=== PATIENT | female | born 1995 | race African-American/Black ===

== ENCOUNTER 2016-07-28 10:08 | Emergency (ER) | payer OTHER ==
[~2016-07-28] VITALS: Ht 162.6 cm; Wt 136.1 kg
[~2016-07-28 10:08] MED LIST: ALBU2.5V5 IH; CETI10CA PO; MOME220A5 IH; PRED50TA PO; albuterol; asmanex; metformin; other
[2016-07-28 10:49] VITALS: BP 166/77
[2016-07-28] MEDS ORDERED: OXYC-323 PO (11:28)
--- NOTE | 2016-07-28 11:29 | PHYS DOC ---
Past Medical History Past Medical History: Anemia, Asthma, Bronchitis, Sickle Cell Disease, Other Additional Past Medical Histor: Obesity Past Surgical History: Tonsillectomy Additional Past Surgical Histo: Adnoids. Alcohol Use: Occasionally Drug Use: None Adult General Chief Complaint Chief Complaint: MEDICATION REFI[facility] HPI 21-year-old female who is on very high doses of opioid medication for chronic pain issues presents stating she is out of her pain medication and asks if we can refill 60 mg of morphine and 30 mg of OxyContin. She states she is scheduled to see her pain clinic this week. She states she was recently discharged from a previous pain clinic secondary to insurance issues.] Review of Systems Review of Systems Constitutional: Denies fever or chills [] Eyes: Denies change in visual acuity, redness, or eye pain [] HENT: Denies nasal congestion or sore throat [] Respiratory: Denies cough or shortness of breath [] Cardiovascular: No additional information not addressed in HPI [] GI: Denies abdominal pain, nausea, vomiting, bloody stools or diarrhea [] : Denies dysuria or hematuria [] Musculoskeletal: Generalized pain [] Integument: Denies rash or skin lesions [] Neurologic: Denies headache, focal weakness or sensory changes [] Endocrine: Denies polyuria or polydipsia [] Allergies Allergies Allergies Coded Allergies Type Severity Reaction Last Updated Verified diphenhydramine HCl Allergy Intermediate Hives 01/24/14 Yes Physical Exam Physical Exam Constitutional: Well developed, well nourished, no acute distress, non-toxic appearance. [] HENT: Normocephalic, atraumatic, bilateral external ears normal, oropharynx moist, no oral exudates, nose normal. [] Eyes: PERRLA, EOMI, conjunctiva normal, no discharge. [] Neck: Normal range of motion, no tenderness, supple, no stridor. [] Cardiovascular:Heart rate regular rhythm, no murmur [] Lungs & Thorax: Bilateral breath sounds clear to auscultation [] Abdomen: Bowel sounds normal, soft, no tenderness, no masses, no pulsatile masses. [] Skin: Warm, dry, no erythema, no rash. [] Back: No tenderness, no CVA tenderness. [] Extremities: No tenderness, no cyanosis, no clubbing, ROM intact, no edema. [] Neurologic: Alert and oriented X 3, normal motor function, normal sensory function, no focal deficits noted. [] Psychologic: Affect normal, judgement normal, mood normal. [] Current Patient Data Vital Signs Vital Signs Date Time Temp Pulse Resp B/P Pulse Ox O2 Delivery O2 Flow Rate FiO2 07/28/16 10:49 98.4 105 15 100 Room Air 98.4 EKG EKG [] Radiology/Procedures Radiology/Procedures [] Course & Med Decision Making Course & Med Decision Making Pertinent Labs and Imaging studies reviewed. (See chart for details) [ED course: Evaluation reveals a 21-year-old female who requires high-dose opioids to manage her chronic daily pain. I had a long conversation with the patient that we could not and would not refill those kinds of medications. I let her know that she would need to follow with her pain management physician to assess her need for such high doses of medication.] Dragon Disclaimer Dragon Disclaimer This electronic medical record was generated, in whole or in part, using a voice recognition dictation system. Departure Departure Impression: Primary Impression: Chronic pain Additional Impression: Opioid dependence Disposition: 01 HOME, SELF-CARE Condition: STABLE Referrals: NO PCP (PCP) Patient Instructions: Chronic Pain, Chronic Pain Management, Opiate Dependence Additional Instructions: Thank you for allowing us to participate in your care today. Followup with your primary care physician in 3 days if your symptoms do not improve. Return to the emergency department you have any new or concerning findings. This should be evaluated by the primary care physician and any necessary consulting services for continued management within a few days after discharge. Return to emergency room if you have any new or concerning symptoms including but not limited to fever, chills, nausea, vomiting, intractable pain, any new rashes, chest pain, shortness of air, uncontrolled bleeding, difficulty breathing, and/or vision loss. You may have been prescribed medication that can change in your level of thinking and ability to operate machinery. These medications include hydrocodone and Ativan. Also, Benadryl has been known to do this as well. Be sure to check with your pharmacist and ask if the medications you've prescribed can affect your level of consciousness. I recommend not operating heavy machinery or driving while on medication such as these. Scripts Oxycodone/Apap 5-325 (Percocet 5-325 Mg Tablet)1 Each Tablet1 Tab PO PRN Q6HRS PRN PAIN #14 TAB Prov:TEODORA SOTO DO 07/28/16 Problem Qualifiers Primary Impression: Chronic pain Chronic pain type: chronic pain syndrome Qualified Code: G89.4 - Chronic pain syndrome Additional Impression: Opioid dependence Substance use status: uncomplicated Qualified Code: F11.20 - Opioid dependence, uncomplicated TEODORA SOTO DO Jul 28, 2016 11:29
[2016-07-28] MEDS ORDERED: OXYCODONE/APAP 5/325 TABLET. PO ONE (11:45)
== END 2016-07-28 11:39 | disposition home or self-care (01) ==
LOC: ER 10:08 → EDBD 10:08 → ER 11:39
DX: G89.29 Other chronic pain (principal); F11.20 Opioid dependence, uncomplicated; J45.909 Unspecified asthma, uncomplicated; E66.9 Obesity, unspecified; Z90.89 Acquired absence of other organs; Z88.8 Allergy status to other drugs, medicaments and biological substances
CPT/HCPCS: 99283

== ENCOUNTER 2016-08-17 19:37 | Emergency (ER) | payer OTHER ==
[~2016-08-17] VITALS: Ht 160 cm; Wt 158.8 kg
[~2016-08-17 19:37] MED LIST changes: +OXYC-323 PO
[2016-08-17 19:50] VITALS: BP 147/63
[2016-08-17 20:23] LABS: BILIRUBIN,URINE NEGATIVE (NEG); GLUCOSE,URINE NEGATIVE (NEG); NITRITE,URINE NEGATIVE (NEG); PH,URINE 5.5; PROTEIN,URINE NEGATIVE (NEG-TRACE); UROBILINOGEN,URINE 0.2 mg/dL (0.2 mg/dL)
[2016-08-17 20:38] LABS: OBC FLU VALID
[2016-08-17 20:40] LABS: BACTERIA,URINE MOD /HPF (0-FEW); RBC,URINE 0 /HPF (0-2); SQUAMOUS EPITHELIAL CELL,UR MANY /LPF; YEAST,URINE PRESENT /HPF
--- NOTE | 2016-08-17 20:48 | PHYS DOC ---
Past Medical History Past Medical History: Anemia, Asthma, Bronchitis, Sickle Cell Disease, Other Additional Past Medical Histor: Obesity Past Surgical History: Tonsillectomy Additional Past Surgical Histo: Adenoids Alcohol Use: Occasionally Drug Use: None Adult General Chief Complaint Chief Complaint: COUGH HPI HPI Patient is a 21 year old female with history of anemia, sickle cell anemia, asthma, who presents today with a sore throat coughing and nasal congestion for 3 days. Patient denies any fever. She is also complaining of body aches. Review of Systems Review of Systems Constitutional: Body aches Eyes: Denies change in visual acuity, redness, or eye pain [] HENT nasal congestion and sore throat [] Respiratory: Cough Cardiovascular: No additional information not addressed in HPI [] GI: Denies abdominal pain, nausea, vomiting, bloody stools or diarrhea [] : Denies dysuria or hematuria [] Musculoskeletal: Denies back pain or joint pain [] Integument: Denies rash or skin lesions [] Neurologic: Denies headache, focal weakness or sensory changes [] Endocrine: Denies polyuria or polydipsia [] Current Medications Current Medications Current Medications Medications (Trade) Dose Ordered Sig/Thierry Start Time Stop Time Status Last Admin Dose Admin Ibuprofen (Motrin) 800 mg 1X ONCE 08/17/16 21:30 08/17/16 21:31 08/17/16 21:21 800 MG Allergies Allergies Allergies Coded Allergies Type Severity Reaction Last Updated Verified diphenhydramine HCl Allergy Intermediate Hives 01/24/14 Yes Physical Exam Physical Exam Constitutional: Well developed, well nourished, no acute distress, non-toxic appearance. [] HENT: Normocephalic, atraumatic, bilateral external ears normal, oropharynx moist, no oral exudates, nose normal. [] Eyes: PERRLA, EOMI, conjunctiva normal, no discharge. [] Neck: Normal range of motion, no tenderness, supple, no stridor. [] Cardiovascular:Heart rate regular rhythm, no murmur [] Lungs & Thorax: Bilateral breath sounds clear to auscultation [] Abdomen: Bowel sounds normal, soft, no tenderness, no masses, no pulsatile masses. [] Skin: Warm, dry, no erythema, no rash. [] Back: No tenderness, no CVA tenderness. [] Extremities: No tenderness, no cyanosis, no clubbing, ROM intact, no edema. [] Neurologic: Alert and oriented X 3, normal motor function, normal sensory function, no focal deficits noted. [] Psychologic: Affect normal, judgement normal, mood normal. [] Current Patient Data Vital Signs Vital Signs Date Time Temp Pulse Resp B/P Pulse Ox O2 Delivery O2 Flow Rate FiO2 08/17/16 19:50 98.9 99 16 100 Room Air 98.9 Lab Values Laboratory Tests Test 08/17/16 20:00 08/17/16 20:10 08/17/16 20:11 Urine Collection Type Unknown Urine Color Yellow Urine Clarity Clear Urine pH 5.5 Urine Specific [place] 1.025 Urine Protein Negativemg/dL (NEG-TRACE) Urine Glucose (UA) Negativemg/dL (NEG) Urine Ketones (Stick) Negativemg/dL (NEG) Urine Blood Negative (NEG) Urine Nitrite Negative (NEG) Urine Bilirubin Negative (NEG) Urine Urobilinogen Dipstick 0.2mg/dL (0.2 mg/dL) Urine Leukocyte Esterase Negative (NEG) Urine RBC 0/HPF (0-2) Urine WBC 1-4/HPF (0-4) Urine Squamous Epithelial Cells Many/LPF Urine Bacteria Mod/HPF (0-FEW) Urine Mucus Marked/LPF Urine Yeast Present/HPF Influenza Type A Antigen Negative (NEGATIVE) Influenza Type B Antigen Negative (NEGATIVE) POC Urine HCG, Qualitative Hcg negative (Negative) EKG EKG [] Radiology/Procedures Radiology/Procedures [] Course & Med Decision Making Course & Med Decision Making Pertinent Labs and Imaging studies reviewed. (See chart for details) Patient is in the ED with symptoms consistent with an upper RESPIRATORY infection including fever cough and body aches. Chest x-ray interpreted by Dr. Bryant is negative for any acute findings. Negative rapid strep, negative influenza A or B. Symptoms are viral. Discharged with instructions to take over- the-counter medications. Patient states she has already been seen at [facility] 5 days ago and was given antibiotics which she has finished. She states she was also given Robitussin. Informed patient she can continue taking any tuke-ikt-ftmbpei cold medicines. Instructed her to take pcln-[id number]-[id number] pain relievers as well. Discharged in stable condition. Patient is demanding RX cough medicine and not Tessalone Perles. Requested RN to tell her she can take OTC medicines but we are not giving her any RX narcotics for her cough. She stormed out and left her paperwork. Mily Disclaimer Mily Disclaimer This electronic medical record was generated, in whole or in part, using a voice recognition dictation system. Departure Departure Impression: Primary Impression: Cough Additional Impression: Upper respiratory infection Disposition: HOME, SELF-CARE Condition: STABLE Referrals: NO PCP (PCP) Follow-up with your own doctor in one week Patient Instructions: Cough, Adult, Pjxv-su-Fouo, Upper Respiratory Infection, Adult Additional Instructions: You were seen with symptoms consistent with an upper respiratory infection. Continue taking pwzx-nrb-xnianrd medications as needed. Follow-up with in one week. Problem Qualifiers Additional Impression: Upper respiratory infection URI type: unspecified URI Qualified Code: J06.9 - Acute upper respiratory infection, unspecified LEWIS MASON APRN Aug 17, 2016 20:48
[2016-08-17] MEDS ORDERED: IBUPROFEN 800 MG TABLET. PO ONE (21:30)
--- NOTE | 2016-08-18 10:11 | RAD ---
EXAM: Chest 2 views. HISTORY: Chest pain. COMPARISON: 08/11/2014. FINDINGS: Frontal and lateral views of the chest are obtained. There are no confluent infiltrates. There is no pneumothorax or pleural effusion. The heart is not enlarged. IMPRESSION: 1. No confluent infiltrates.
[2016-08-19 08:28] LABS: NEGATIVE OBC STREP NEG
[2016-08-19 08:29] LABS: POSITIVE OBC STREP POS
== END 2016-08-17 21:26 | disposition home or self-care (01) ==
LOC: ER 19:37
DX: J06.9 Acute upper respiratory infection, unspecified (principal); J45.909 Unspecified asthma, uncomplicated; Z90.89 Acquired absence of other organs; Z88.8 Allergy status to other drugs, medicaments and biological substances
CPT/HCPCS: 71020; 81001; 81025; 87070; 87804; 87880; 99285-25

== ENCOUNTER 2017-05-28 04:17 | Emergency (ER) | payer SELFPAY ==
[~2017-05-28] VITALS: Ht 162.6 cm; Wt 152.0 kg
[2017-05-28 05:07] VITALS: BP 156/67
[2017-05-28] MEDS ORDERED: PRED-220 PO (05:29)
--- NOTE | 2017-05-28 05:29 | PHYS DOC ---
Past Medical History Past Medical History: Anemia, Asthma, Bronchitis, Sickle Cell Disease, Other Additional Past Medical Histor: Obesity Past Surgical History: Tonsillectomy Additional Past Surgical Histo: Adenoids Additional Information: pt exposed to 2nd hand smoke Alcohol Use: Occasionally Drug Use: None Adult General Chief Complaint Chief Complaint: Congestion HPI HPI Patient is a 22 year old female who presents with complaint of cough and congestion for the past 2 weeks. Patient states that she was seen approximately 2 weeks ago by her primary doctor and was started on cough medication which did not help her symptoms. Patient was thus started on an antibiotic that was called in by her primary physician. Patient states she completed this antibiotic , however she is still having congestion and shortness of breath. Patient has history of asthma. Patient states that she has not been on steroid therapy since her symptoms started. Patient has not had any fevers and denies productive cough. Patient also denies any chest pain, abdominal pain, nausea, or vomiting. Patient has had runny nose and nasal dryness associated with her symptoms. Review of Systems Review of Systems Constitutional: Denies fever or chills [] Eyes: Denies change in visual acuity, redness, or eye pain [] HENT: Denies nasal congestion or sore throat [] Respiratory: Cough, shortness of breath[] Cardiovascular: Denies chest pain or edema[] GI: Denies abdominal pain, nausea, vomiting, bloody stools or diarrhea [] : Denies dysuria or hematuria [] Musculoskeletal: Denies back pain or joint pain [] Integument: Denies rash or skin lesions [] Neurologic: Denies headache, focal weakness or sensory changes [] All other systems were reviewed and found to be within normal limits, except as documented in this note. Allergies Allergies Allergies Coded Allergies Type Severity Reaction Last Updated Verified diphenhydramine HCl Allergy Intermediate Hives 01/24/14 Yes Physical Exam Physical Exam Constitutional: Alert, obese, afebrile, no acute distress. [] HENT: Normocephalic, atraumatic, bilateral external ears normal, oropharynx moist, no oral exudates, nose normal. [] Eyes: PERRLA, EOMI, conjunctiva normal, no discharge. [] Neck: Normal range of motion, no tenderness, supple, no stridor. [] Cardiovascular:Heart rate regular rhythm, no murmur [] Lungs & Thorax: Mild restriction of air movement bilaterally, rhonchi bilaterally, no rales[] Abdomen: Bowel sounds normal, soft, no tenderness, no masses, no pulsatile masses. [] Skin: Warm, dry, no erythema, no rash. [] Back: No tenderness, no CVA tenderness. [] Extremities: No tenderness, no cyanosis, no clubbing, ROM intact, no edema. [] Neurologic: Alert and oriented X 3, normal motor function, normal sensory function, no focal deficits noted. [] Current Patient Data Vital Signs Vital Signs Date Time Temp Pulse Resp B/P (MAP) Pulse Ox O2 Delivery O2 Flow Rate FiO2 05/28/17 05:07 98.2 87 22 156/67 (96) 100 Room Air 98.2 Lab Values Laboratory Tests Test 05/28/17 05:04 POC Urine HCG, Qualitative Hcg negative (Negative) EKG EKG Not performed[] Radiology/Procedures Radiology/Procedures Not performed[] Course & Med Decision Making Course & Med Decision Making Pertinent Labs and Imaging studies reviewed. (See chart for details) Patient treated with prednisone and DuoNeb in the emergency department. The patient will continue on a prednisone taper for treatment of asthma exacerbation. Advise follow-up with primary doctor in the next 3-5 days for reevaluation and to return emergency department for any worsening symptoms. Patient voiced understanding and in agreement with treatment plan. Dragon Disclaimer Dragon Disclaimer This electronic medical record was generated, in whole or in part, using a voice recognition dictation system. Departure Departure Impression: Primary Impression: Asthma exacerbation Disposition: 01 HOME, SELF-CARE Condition: IMPROVED Referrals: NO PCP (PCP) Patient Instructions: Asthma, Adult Additional Instructions: Follow-up with your primary doctor in the next 3-5 days for reevaluation. Return to the emergency department for any worsening symptoms. Scripts Prednisone (PREDNISONE) 10 Mg Tablet 10 MG PO UD for PREDNISONE TAPER, #39 TAB 0 Refills Take 3 tablets by mouth twice a day for 3 days, then take 2 tablets by mouth twice a day for 3 days, then take 1 tablet by mouth twice a day for 3 days, then take 1 tablet by mouth daily x 3 days, then stop. Prov: YARA CARVAJAL MD 05/28/17 Problem Qualifiers Primary Impression: Asthma exacerbation Asthma severity: mild Asthma persistence: persistent Qualified Codes: J45.31 - Mild persistent asthma with (acute) exacerbation YARA CARVAJAL MD May 28, 2017 05:29
[2017-05-28] MEDS ORDERED: IPRATRPIUM/ALBUTEROL 0.5/2.5MG 3 ML NEBU. NEB ONE (05:30)
[2017-05-28] MEDS ORDERED: predniSONE 10 MG TABLET PO ONE (05:30)
== END 2017-05-28 06:10 | disposition home or self-care (01) ==
LOC: ER 04:17
DX: J45.31 Mild persistent asthma with (acute) exacerbation (principal); E66.9 Obesity, unspecified; Z68.43 Body mass index [BMI] 50.0-59.9, adult; Z77.22 Contact with and (suspected) exposure to environmental tobacco smoke (acute) (chronic); Z88.8 Allergy status to other drugs, medicaments and biological substances
CPT/HCPCS: 81025; 94640; 99283; J7512; J7620